=== PATIENT | female | born 1945 | race Caucasian/White ===

== ENCOUNTER → 2018-02-14 07:20 | Day surgery (SDC) | payer MEDICARE, OTHER ==
--- NOTE | 2018-02-10 20:34 | HP ---
CC: Dr. Jolanta Heredia; Dr. Jax Oneill; Dr. Gricelda Tobias * ADMISSION HISTORY AND PHYSICAL: DATE OF ADMISSION: 02/14/18 ATTENDING SURGEON: Dr. Krys Murphy. * (DICTATED BY RAÚL MCDANIEL) CHIEF COMPLAINT: Right breast cancer. HISTORY OF PRESENT ILLNESS: This is a 72-year-old female, who underwent routine screening mammography in early January of this year. She had not noted any changes in her breasts. The mammogram apparently showed a new area of concern in the 9 o'clock position of the right breast. An ultrasound-guided biopsy was performed on 01/19/18, which showed invasive breast cancer (see separate report). A biopsy clip was placed. There is no prior history of breast biopsies other than a cyst aspiration. There is no family history of breast or ovarian cancer. The remainder of her breast history is outlined in her chart record. She was seen in the office by Dr. Murphy on 01/31/18, at which time exam showed left breast slightly larger than the right, some ecchymosis in the lateral portion of the right breast from recent biopsy, but no discrete masses palpable in either breast. There was no palpable lymphadenopathy. There were no other skin or nipple changes. Dr. Murphy discussed with her the options and after review of the indications, risks, benefits, and alternatives, the patient would like to proceed as scheduled with excision of right breast cancer after needle localization combined with sentinel lymph node biopsy. She has been seen already by Dr. Oneill and has an appointment to be seen by Dr. Tobias postoperatively. PAST MEDICAL HISTORY: Obesity, environmental allergies, prediabetes, osteopenia , lumbar degenerative disk disease. PAST SURGICAL HISTORY: Previous surgeries include stripping of varicose veins, open cholecystectomy, tubal ligation, and ORIF of a left ankle fracture. No reported surgical or anesthesia complications. CURRENT MEDICATIONS: 1. Multivitamin once daily. 2. Vitamin C 500 mg once daily. 3. Zyrtec 10 mg once daily. 4. She will complete a course of cephalexin 500 mg four times daily on for an infection of the right thumb. DRUG ALLERGIES: MORPHINE (near syncope), CODEINE (nausea). (The patient has tolerated oxycodone and hydrocodone). FAMILY HISTORY: Negative for anesthesia problems, bleeding or clotting disorders. SOCIAL HISTORY: The patient lives alone. She is retired from teaching and other work. She is a former smoker, who smoked approximately 1 pack per week and quit around 1998. She drinks alcohol rarely and denies other recreational drug use. REVIEW OF SYSTEMS: General: No recent constitutional symptoms or acute illnesses other than as described in the HPI and recent infection of the right thumb, which was treated with oral antibiotics as noted above with improvement. HEENT: No recent changes or problems reported. Cardiovascular: No chest pain, palpitations, history of hypertension, or heart murmur. Respiratory: No history of asthma, chronic cough, or shortness of breath. GI: No problems reported. She had previously refused any colorectal cancer screening. No problems reported. : No problems reported. 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 No history of abnormal Pap smears. Endocrine: No diabetes or thyroid dysfunction. Musculoskeletal: Disk disease of the lumbar spine with intermittent low back pain and/or sciatica. PHYSICAL EXAMINATION GENERAL: Well-nourished, obese female, in no acute distress. VITAL SIGNS: Height 5 feet 2 inches, weight 190 pounds. Blood pressure 124/80 , pulse 78, respirations 18. HEENT: Pupils are equal, round, and reactive. EOMs intact. No conjunctival pallor. Oropharynx: Teeth in good repair. No intraoral lesions. NECK: No lymphadenopathy in the cervical or supraclavicular regions, none in the axillary regions per Dr. Murphy's exam. LUNGS: Clear to auscultation. No wheezes. HEART: Regular rate and rhythm. No murmur noted. BREASTS: As above per Dr. Murphy's exam, not repeated today. ABDOMEN: Well-healed right subcostal incision. Soft, nontender to palpation. No palpable masses or organomegaly. GENITALIA: Not done. RECTAL: Not done. BACK: No spinous process or CVA tenderness. EXTREMITIES: No edema. NEUROLOGICAL: Grossly intact. SKIN: Warm and dry. No suspicious rashes or lesions. IMPRESSION: Right breast cancer. PLAN: Excision of right breast cancer (after needle localization); sentinel lymph node biopsy. RAÚL MCDANIEL [id number]/[facility] #: [id number] ADELFO
[~2018-02-14 07:20] MED LIST: Acetaminophen TAB* 325 MG ONE; Acetaminophen TAB* 325 MG PO PRN; Buffered Lidocaine 0.9% SYRIN* 5 ML/SYR SYRINGE INTRADERM ONE; Bupivacaine 0.25% SDV PF* 10 ML VIAL INJ ONE; Bupivacaine 0.25% W/EPI* 10 ML SDV ONE; Dexamethasone IV* 4 MG/ML 1 ML (4 MG) ONE; DiMENhydriNATE IV* 50 MG/ML VIAL IV PUSH PRN; DiMENhydriNATE IV* 50 MG/ML VIAL ONE; Famotidine IV* 10 MG/ML 2 ML (20 mg) IV ONE; Famotidine IV* 10 MG/ML 2 ML (20 mg) ONE; HYDROcodone/ACETAMIN 5-325 MG* 1 TAB PO PRN; Ketorolac INJ* 30 MG/ML 1 ML VIAL ONE; Lidocaine 1% INJ* 10 MG/ML 30 ML SDV ONE; Lidocaine 2.5%/Prilocain 2.5%* 5 GM TUBE ONE; Methylene Blue 0.5 %* 50 MG/10 ML AMP IV ONE; Midazolam* 1 MG/ML 5 ML VIAL (5 MG) ONE; Naloxone* 0.4 MG/ML 1 ML VIAL IV PRN; Ondansetron INJ* 2 MG/ML VIAL ONE; Propofol* 10 MG/ML 20 ML BTL IV PUSH ONE; ceFAZolin 2 GM in NS PREMIX(*) 2 GM/100 ML BAG IVPB ONE; fentaNYL* 50 MCG/ML 2 ML VIAL (100 MCG VIAL) ONE; oxyCODONE TAB* 5 MG TAB ONE; oxyCODONE/Acetamin 5/325 MG* TAB ONE
--- NOTE | 2018-02-14 09:31 | RAD ---
INDICATION: Right breast needle localization procedure under ultrasound guidance. COMPARISON: Correlation is made with prior mammograms and a right breast ultrasound from January 12, 2018. TECHNIQUE: The benefits and risks of the procedure were explained to the patient. The patient consented to the exam. A timeout was performed before beginning the procedure. Multiple images of the right breast were obtained. Again note is made of a 8 mm solid nodule at the 9:00 position in the right breast. The patient was prepped and draped in the usual sterile fashion. The right breast was anesthetized with 1% lidocaine. Using ultrasound guidance a needle was placed through the solid nodule at the 9:00 position. This was exchanged for a Yeager type wire. A postprocedure ultrasound demonstrates that the wire extends through the region of the solid nodule. Post procedure mediolateral and craniocaudad mammograms of the right breast were obtained demonstrating the wire to be in appropriate position. There is no evidence for hematoma. IMPRESSION: SUCCESSFUL ULTRASOUND-GUIDED RIGHT BREAST NEEDLE LOCALIZATION.
--- NOTE | 2018-02-14 10:13 | RAD ---
INDICATION: Right breast carcinoma. Comparison: Correlation is made with prior mammograms and a right breast ultrasound from January 12, 2018. Technique: The benefits and risks of the procedure were explained to the patient. The patient consented to the exam. A timeout was performed before beginning the procedure. 0.32 mCi of technetium 99m filtered sulfur colloid were injected in a ellis-areolar location in the right breast. Four intradermal injections were made. The patient tolerated the procedure well without incident. Multiple images of the chest and right axilla were obtained in the frontal, oblique and lateral projections. FINDINGS: There was a single sentinel node present in the right axilla. This was marked and localized on the patient's skin. IMPRESSION: THERE IS A SINGLE SENTINEL LYMPH NODE PRESENT WITHIN THE RIGHT AXILLA. THIS WAS LOCALIZED AND MARKED ON THE PATIENT'S SKIN SURFACE.
--- NOTE | 2018-02-14 15:02 | BRIEFOPN ---
Brief Operative Note - Surgery Procedures: 02/14/18 Op Note (dictated) Pre-op dx: right breast cancer Post-op dx: same Procedure: needle localization excision of right breast cancer and sentinel lymph node biopsy Surgeon: Jeffrey Smitht: Jarret Anesth: general EBL: 20 cc Complications: none SCDs on during surgery Abx: given pre-op Pt. tolerated procedure well and was transferred to in a stable condition. CLFoster
[2018-02-14] MEDS: oxyCODONE TAB* 5 MG TAB PO PRN ×2 (15:58→16:49)
[2018-02-14 16:33] VITALS: BP 133/76
--- NOTE | 2018-02-14 23:33 | OP ---
CC: Dr. Jolanta Heredia; [facility]; Dr. Jax Oneill * DATE OF OPERATION: 02/14/18 - [facility] DATE OF : 47 SURGEON: Krys Murpyh MD SURVEY DATA TECHNICIAN: RAÚL Wheat student. PRE-OP DIAGNOSIS: Right breast cancer. POST-OP DIAGNOSIS: Right breast cancer. OPERATIVE PROCEDURE: Needle localization excision of right breast cancer and sentinel lymph node biopsy. INDICATIONS: Ms. Arias is a 72-year-old female who was diagnosed recently with breast cancer. This prompted the plan for surgical intervention. On the morning of the surgery, she underwent needle localization and then sentinel lymph node localization without difficulty. DESCRIPTION OF PROCEDURE: She was then brought to the operating room. She was placed on the OR table in supine position and given general anesthesia. The right breast was prepped and draped in the usual sterile fashion, taking care not to dislodge the localizing wire. After infiltrating with local anesthetic, a curvilinear elliptical incision encompassing the wire was made and subcutaneous tissue was then divided with electrocautery to excise the massive tissue from around the wire. It was noted that the lateral aspect appeared to be very close to tumor, so after the initial specimen was removed it was marked in the usual fashion and handed off and then some additional tissue was taken from lateral to the first specimen. This was also done with electrocautery and once tissue lateral to the original specimen was removed, it was marked in the usual fashion and then also handed off. Hemostasis was achieved with electrocautery and then it was recognized that the sentinel node was within region of the breast site. So, the decision was made to access the axilla from the breast incision. The sentinel node proximal location was identified and then using electro-cautery, the dissection was continued in the deeper aspect of the incision to expose the axillary fat pad. This was grasped with an Allis clamp and again using the navigator, the proximal location of the sentinel node was identified. Dissection around the sentinel node was accomplished using sharp dissection and clips to control small blood and lymphatic vessels that approached the sentinel gland. It should be mentioned that the 10- second count of the sentinel node in situ was around 1600, and once that was removed from the axilla, the counts were again checked and were around 1000. At that point, the axillary bed count was checked and was around 3. This confirmed that the sentinel node was indeed to sentinel node, it was handed off as the sentinel node. The wound was inspected for hemostasis, which was achieved with suture ligature in the axilla, then clips were used to wendy the confines of the cavity of the breast, and then additional local was instilled into the wound and closure was accomplished with 3-0 Vicryl in the subcutaneous layer and the skin was closed with 4-0 Prolene in a subcuticular fashion. Steri-Strips and a dry sterile dressing were applied. All sponge and instrument counts were correct. The patient tolerated the procedure well and was transferred to Recovery in a stable condition. [id number]/[facility] #: [id number] MTDD
== END | disposition home or self-care (01) ==
LOC: SDS 07:20
PROVIDERS: ATTEND Surgery
DX: C50.911 Malignant neoplasm of unspecified site of right female breast (principal); C77.3 Secondary and unspecified malignant neoplasm of axilla and upper limb lymph nodes; Z87.891 Personal history of nicotine dependence; F41.9 Anxiety disorder, unspecified; R73.03 Prediabetes
CPT/HCPCS: 77061; 78195; 88307; 88342; A9270-GY; A9541; G0279; J0690; J1100; J1240; J1885; J2250; J2405; J2704; J3010; J3490

== ENCOUNTER 2018-03-03 06:47 | Day surgery (SDC) | payer MEDICARE, OTHER ==
[~2018-03-03 06:47] MED LIST changes: +Acetaminophen IV 1GM/100ML * 1,000 MG/100 ML VIAL IVPB ONE; -Acetaminophen TAB* 325 MG ONE; -Acetaminophen TAB* 325 MG PO PRN; +Bupivacaine 0.25% EPI 200,000* 30 ML SDV ONE; -Bupivacaine 0.25% SDV PF* 10 ML VIAL INJ ONE; -Bupivacaine 0.25% W/EPI* 10 ML SDV ONE; +Bupivacaine 0.5% SDV PF* 30ML VIAL ONE; -Dexamethasone IV* 4 MG/ML 1 ML (4 MG) ONE; +Dexamethasone TAB* 4 MG PO ONE; -DiMENhydriNATE IV* 50 MG/ML VIAL ONE; -Famotidine IV* 10 MG/ML 2 ML (20 mg) ONE; -HYDROcodone/ACETAMIN 5-325 MG* 1 TAB PO PRN; +HYDROmorphone INJ1* 1 MG/ML SYRINGE IV PRN; -Ketorolac INJ* 30 MG/ML 1 ML VIAL ONE; -Lidocaine 2.5%/Prilocain 2.5%* 5 GM TUBE ONE; -Methylene Blue 0.5 %* 50 MG/10 ML AMP IV ONE; -Midazolam* 1 MG/ML 5 ML VIAL (5 MG) ONE; -Ondansetron INJ* 2 MG/ML VIAL ONE; +Ondansetron TAB* 4 MG PO ONE; +PROCHLORPERAZINE INJ 5 MG/ML 2 ML VIAL IV PRN; -Propofol* 10 MG/ML 20 ML BTL IV PUSH ONE; -ceFAZolin 2 GM in NS PREMIX(*) 2 GM/100 ML BAG IVPB ONE; +fentaNYL* 50 MCG/ML 2 ML VIAL (100 MCG VIAL) IV PRN; -fentaNYL* 50 MCG/ML 2 ML VIAL (100 MCG VIAL) ONE; -oxyCODONE TAB* 5 MG TAB ONE; -oxyCODONE/Acetamin 5/325 MG* TAB ONE
[2018-03-03] MEDS ORDERED: Famotidine IV* 10 MG/ML 2 ML (20 mg) ONE (07:04)
[2018-03-03] MEDS ORDERED: Heparin VIAL(*) 5000 UNITS/ML VIAL (FIVE THOUSAND) ONE (07:04)
[2018-03-03] MEDS ORDERED: Ondansetron ODT TAB* 4 MG ONE (07:05)
[2018-03-03] MEDS ORDERED: Dexamethasone TAB* 4 MG ONE (07:05)
[2018-03-03] MEDS ORDERED: ceFAZolin 2 GM in NS PREMIX(*) 2 GM/100 ML BAG IVPB ONE (07:06)
[2018-03-03] MEDS ORDERED: Midazolam* 1 MG/ML 2 ML VIAL (2 MG) ONE (07:20)
[2018-03-03] MEDS ORDERED: KETAMINE HCL* 50 MG/ML 10 ML VIAL ONE (07:20)
[2018-03-03] MEDS ORDERED: fentaNYL* 50 MCG/ML 2 ML VIAL (100 MCG VIAL) ONE (07:20)
[2018-03-03] MEDS ORDERED: Acetaminophen IV 1GM/100ML * 100 ML ONE (07:33)
[2018-03-03] MEDS ORDERED: Lidocaine 2% PF * 5 ML VIAL ONE (07:54)
[2018-03-03] MEDS ORDERED: Propofol* 500 MG/50 ML BTL ONE (07:54)
--- NOTE | 2018-03-03 08:39 | OP ---
Operative Report - Blank - Operative Report Date of Operation: 03/03/18 Note: Preop Dx: right breast cancer Postop Dx: same Procedure: re-excision right breast cancer for positive margins Anesthesia: local MAC Surgeon: Jeffrey Asst: RAÚL Cloud Fluids: 500 ml RL EBL: < 50 ml Specimen: Right breast cancer margins Drains: none Findings: dictated
[2018-03-03] MEDS ORDERED: Ketorolac INJ* 30 MG/ML 1 ML VIAL ONE (08:40)
[2018-03-03 09:19] VITALS: BP 144/96
--- NOTE | 2018-03-03 12:47 | OP ---
CC: [facility] OPERATIVE REPORT: DATE OF OPERATION: 03/03/18 DATE OF : 47 SURGEON: Krys Murphy MD DUSTING AND BRUSHING MACHINE OPERATOR: RAÚL Del Angel PRE-OP DIAGNOSIS: Positive margin of breast cancer in the right breast. POST-OP DIAGNOSIS: Positive margin of breast cancer in the right breast. OPERATIVE PROCEDURE: Wide re-excision of right breast cancer. INDICATIONS: Ms. Arias is a 72-year-old woman recently diagnosed with breast cancer, who underwen t lumpectomy and sentinel node biopsy. The pathology showed the positive anterior margin on the phillip st excision, so plans were made for wide re- excision. DESCRIPTION OF PROCEDURE: She was brought to the operating room, placed on the OR table in the supin e position and given IV sedation. The right breast was prepped and draped in the usual sterile fashi on. The previous Steri-Strips and stitch had been removed prior to prepping. After infiltrating wit h local anesthetic, a curvilinear elliptical incision encompassing the previous scar was made. Subcut aneous tissue was then divided with electrocautery to excise a mass of tissue from the anterior aspec t of the previous cavity. Once this was removed, it was marked in the usual fashion and noted to be located anterolateral to the previous specimen and handed off. Hemostasis was assured with electroca utery. The wound was irrigated with saline and once hemostasis was assured, additional local was ins tilled into the wound and then closure was accomplished with 3-0 Vicryl in the subcutaneous layer and the skin was closed with 4-0 Prolene in a subcuticular fashion. Steri-Strips and a dry sterile dres sing were applied. All sponge and instrument counts were correct. The patient tolerated the procedu re well and was transferred to Recovery in a stable condition. [id number]/[facility] #: [id number]
== END 2018-03-03 09:20 | disposition home or self-care (01) ==
LOC: OR 06:47
PROVIDERS: ATTEND Surgery
DX: C50.911 Malignant neoplasm of unspecified site of right female breast (principal); Z87.891 Personal history of nicotine dependence; M51.26 Other intervertebral disc displacement, lumbar region
CPT/HCPCS: 88307; A9270-GY; J0690; J1644; J1885; J2250; J2704; J3010; J8540